=== PATIENT | male | born 1950 | race Caucasian/White ===

== ENCOUNTER 2019-07-02 10:55 | Day surgery (SDC) | payer BC ==
[2019-07-02] VITALS (12 sets, daily range): BP systolic 115–145; BP diastolic 59–97
[~2019-07-02] VITALS: Ht 177.8 cm; Wt 91.0 kg
[2019-07-02] MEDS ORDERED: nitroGLYCERIN 0.4mg SUBLingual tab SL PRN (11:15)
[2019-07-02] MEDS ORDERED: LORazepam 0.5 MG tablet PO PRN (11:15)
[2019-07-02] MEDS ORDERED: diphenhydrAMINE 25mg capsule PO PRN (11:15)
[2019-07-02] MEDS ORDERED: normal saline 1,000 ML IV SCH (11:15)
[2019-07-02] MEDS ORDERED: fentaNYL/PF 50MCG/1 ML 2ML syringe ONE (11:57)
[2019-07-02] MEDS ORDERED: LIDOcaine 1% (10mg/ml)w/preservative injection 20ml MDV ONE (11:57)
[2019-07-02] MEDS ORDERED: iohexol 350MG/ML 100ml bottle IV ONE (11:57)
[2019-07-02] MEDS ORDERED: midazolam 2 mg/2 ml injection ONE (11:57)
[2019-07-02] MEDS ORDERED: iohexol 350 MG/ML 50ML vial IV ONE ×3 (11:57→12:59)
[2019-07-02] MEDS ORDERED: GLUC100017 PO (12:24)
[2019-07-02] MEDS ORDERED: SILD50TA PO (12:24)
[2019-07-02] MEDS ORDERED: ASPI81TA52 PO (12:24)
[2019-07-02] MEDS ORDERED: KRIL1CAP PO (12:24)
[2019-07-02] MEDS ORDERED: ASCO-349 PO (12:24)
[2019-07-02] MEDS ORDERED: MULT1TAB74 PO (12:24)
[2019-07-02] MEDS ORDERED: VITA100C22 PO (12:24)
[2019-07-02] MEDS ORDERED: CYAN-51 PO (12:24)
[2019-07-02] MEDS ORDERED: IBUP200C5 PO (12:24)
[2019-07-02] MEDS ORDERED: normal saline 1000ml 1,000 ML IV ONE (13:50)
[2019-07-02] MEDS ORDERED: ondansetron/PF 4mg/2ml inj IV PRN (13:50)
[2019-07-02] MEDS ORDERED: proCHLORperazine 10 MG/2 ml inj IV PRN (13:50)
[2019-07-02] MEDS ORDERED: OXAZEpam 15mg capsule PO PRN (13:50)
[2019-07-02] MEDS ORDERED: HYDROcodone/acetaminophen 5mg/325mg tablet PO PRN (13:50)
[2019-07-02] MEDS ORDERED: HYDROcodone/acetaminophen 10/325mg tab PO PRN (13:50)
== END 2019-07-02 19:30 | disposition home or self-care (01) ==
LOC: SSTAY O 10:55
PROVIDERS: ATTEND Internal Medicine Cardiovascular Disease
DX: R94.39 Abnormal result of other cardiovascular function study (principal); R07.9 Chest pain, unspecified; I25.10 Atherosclerotic heart disease of native coronary artery without angina pectoris; Z98.890 Other specified postprocedural states; Z79.82 Long term (current) use of aspirin; Z79.899 Other long term (current) drug therapy
CPT/HCPCS: 93454; 93567; 99152; 99153; C1769; J1644; J2001; J2250; J3010; J7030; Q9967; A4620; A6258; C1760